=== PATIENT | female | born 1970 | race Native Hawaiian/Other Pacific Islander ===

== ENCOUNTER 2022-03-31 23:27 | Emergency (ER) | payer OTHER ==
[~2022-03-31] VITALS: Ht 167.6 cm; Wt 90.7 kg
[2022-03-31 23:27] VITALS: TEMP 97.6
[2022-04-01 01:02] LABS: PLATELET COUNT 317 K/uL (152-353); POTASSIUM 4.3 mmol/L (3.6-5.2); SODIUM 138 mmol/L (136-145)
[2022-04-01 01:26] LABS: PARTIAL THROMBOPLASTIN TIME 27.7 SECONDS (24.5-33.6)
[2022-04-01 04:40] VITALS: BP 111/64
== END 2022-04-01 04:48 | disposition home or self-care (01) ==
LOC: ED 23:27
PROVIDERS: Family Medicine
PROC: 0T9B70Z Drainage of Bladder with Drainage Device, Via Natural or Artificial Opening (ICD-10-PCS; principal; 2022-03-31)
DX: T42.8X1A Poisoning by antiparkinsonism drugs and other central muscle-tone depressants, accidental (unintentional), initial encounter (principal); R40.4 Transient alteration of awareness; X58.XXXA Exposure to other specified factors, initial encounter; Y92.89 Other specified places as the place of occurrence of the external cause
CPT/HCPCS: 51702; 80053; 80307; 81002; 82550; 84484; 85027; 85610; 85730; 93005; 96360; 96361; 99284